=== PATIENT | female | born 1955 | race Two or more races ===

== ENCOUNTER 2021-06-07 08:00 | Outpatient (CLI) | payer OTHER | END 2021-06-07 08:30 | disposition home or self-care (01) | LOC: PPH VACUNA 08:00 | PROVIDERS: ATTEND Emergency Medicine Pediatric Emergency Medicine | DX: Z23 Encounter for immunization (principal) ==

== ENCOUNTER 2021-06-28 13:33 | Outpatient (CLI) | payer OTHER | END 2021-06-28 13:37 | disposition home or self-care (01) | LOC: MAMO-SONO 13:33 | DX: N60.11 Diffuse cystic mastopathy of right breast (principal); N60.12 Diffuse cystic mastopathy of left breast ==